=== PATIENT | male | born 1970 | race Hispanic/Latino ===

== ENCOUNTER 2020-12-22 08:00 | Inpatient (IN) | payer BC, OTHER ==
[~2020-12-22] VITALS: Ht 160 cm; Wt 82.6 kg
[2020-12-22 10:11] LABS: BASOPHILS % (AUTO) 0.8 % (0.0-5.0); EOSINOPHILS % (AUTO) 2.1 % (0.0-8.0); HEMATOCRIT 44.4 % (42-54); LYMPHOCYTES % (AUTO) 33.8 % (21.0-51.0); MEAN CORPUSCULAR HEMOGLOBIN 29.9 pg (27.0-33.0); MEAN CORPUSCULAR HGB CONC 33.1 g/dL (32.0-36.0); MEAN CORPUSCULAR VOLUME 90.2 fL (79-99); MONOCYTES % (AUTO) 6.9 % (3.0-13.0); NEUTROPHILS % (AUTO) 56.2 % (40.0-77.0); PLATELET COUNT (AUTO) 227 K/uL (130-400); RED BLOOD CELL COUNT(AUTO) 4.92 MIL/uL (4.50-6.20); RED CELL DISTRIBUTION WIDTH 12.2 % (11.0-15.5); WHITE BLOOD COUNT (AUTO) 5.2 K/uL (4.8-10.8)
[2020-12-22 10:16] LABS: APPEARANCE,URINE Clear (CLEAR); BILIRUBIN,URINE Negative (NEGATIVE); COLOR,URINE Yellow (YELLOW); GLUCOSE, URINE (UA) Negative (NEGATIVE); KETONES,URINE Negative (NEGATIVE); LEUKOCYTE ESTERASE ,URINE Negative (NEGATIVE); NITRATE,URINE Negative (NEGATIVE); OCCULT BLOOD,URINE Negative (NEGATIVE); PROTEIN,URINE Negative (NEGATIVE)
[2020-12-22 10:33] LABS: INR 0.99 (0.85-1.15); PROTHROMBIN TIME 10.8 SEC (9.6-11.6)
[2020-12-22 10:34] LABS: CREATININE 0.9 mg/dL (0.5-1.5); POTASSIUM 4.4 mmol/L (3.5-5.1)
[2020-12-22 12:16] VITALS: BP 135/73
[2020-12-22] MEDS ORDERED: GABA600T10 PO (12:42)
[2020-12-22] MEDS ORDERED: TRAM50TA4 PO (12:42)
[2020-12-22] MEDS ORDERED: NAPR-1023 PO (12:42)
[2020-12-25] VITALS (20 sets, daily range): BP systolic 97–132; BP diastolic 45–81
[2020-12-25] MEDS ORDERED: LACTATED RINGERS 1000ML 1,000 ML IV ONE (10:30)
[2020-12-25] MEDS ORDERED: ACET-2743 PO (11:07)
[2020-12-25] MEDS: CEFAZOLIN SODIUM 1 GM VIAL ONE ×2 (11:08→16:43)
[2020-12-25] MEDS ORDERED: METOCLOPRAMIDE 10 MG/2 ML VIAL ONE (15:07)
[2020-12-25] MEDS ORDERED: ACETAMINOPHEN 500 MG TABLET ONE (15:07)
[2020-12-25] MEDS ORDERED: CELECOXIB 200 MG CAP ONE (15:08)
[2020-12-25] MEDS: TRANEXAMIC ACID 1000MG/10ML ONE ×2 (15:19→16:48)
[2020-12-25] MEDS ORDERED: CEFAZOLIN SODIUM 1 GM VIAL ONE (16:19)
[2020-12-25] MEDS ORDERED: ROCURONIUM 10MG/1ML SYR 10 MG/ML ML ONE ×2 (16:25→17:54)
[2020-12-25] MEDS ORDERED: PROPOFOL 10 MG/ML 20ML VIAL IV ONE (16:25)
[2020-12-25] MEDS ORDERED: MIDAZOLAM HCL 1 MG/ML 2ML VIAL ONE (16:25)
[2020-12-25] MEDS ORDERED: LIDOCAINE HCL-MPF 1% 5ML AMP IJ ONE (16:25)
[2020-12-25] MEDS ORDERED: FENTANYL CITRATE PF 50 MCG/1 ML 2ML VIAL ONE ×2 (16:26→17:41)
[2020-12-25] MEDS ORDERED: PHENYLEPHRINE HCL 10 MG/ML 1ML VIAL IV ONE (17:34)
[2020-12-25] MEDS ORDERED: EPHEDRINE SULFATE 50 MG/ML AMPULE ONE (18:31)
[2020-12-25] MEDS ORDERED: TRANEXAMIC ACID 1000MG/10ML ONE (19:51)
[2020-12-25] MEDS ORDERED: POTASSIUM CHLORIDE 10% ELIXIR 20 MEQ/15 ML UDCUP PO PRN (20:00)
[2020-12-25] MEDS ORDERED: TRAMADOL HCL 50 MG TABLET PO PRN (20:00)
[2020-12-25] MEDS ORDERED: CALCIUM CARB 500MG PO PRN (20:00)
[2020-12-25] MEDS ORDERED: OXYCODONE HCL 5 MG TAB PO PRN (20:00)
[2020-12-25] MEDS ORDERED: LIDOCAINE HCL-MPF 1% 2ML VIAL IV PRN (20:00)
[2020-12-25] MEDS ORDERED: ONDANSETRON 4MG INJ IVP PRN (20:00)
[2020-12-25] MEDS ORDERED: DiphenhydrAMINE HCL 50 MG/ML VIAL IVP PRN (20:00)
[2020-12-25] MEDS ORDERED: FERROUS FUMARATE 324 MG TABLET PO PRN (20:00)
[2020-12-25] MEDS ORDERED: POTASSIUM CHLORIDE 20MEQ/100ML 100 ML IV PRN (20:00)
[2020-12-25] MEDS ORDERED: MEPERIDINE-PF 25 MG/ML SYG ONE ×2 (20:40→20:49)
[2020-12-25] MEDS ORDERED: ONDANSETRON 4MG INJ ONE (21:04)
[2020-12-25] MEDS: PREGABALIN 25 MG CAP PO SCH (21:48)
[2020-12-25] MEDS: CELECOXIB 200 MG CAP PO SCH (21:48)
[2020-12-25] MEDS: FAMOTIDINE 20MG TAB PO SCH (21:49)
[2020-12-25] MEDS: ACETAMINOPHEN 500 MG TABLET PO SCH (21:49)
[2020-12-25] MEDS: ASPIRIN 81 MG EC TAB PO SCH (21:49)
[2020-12-25] MEDS: 0.9%NACL 1000ML 1,000 ML IV SCH (21:50)
[2020-12-25] MEDS: TEMAZEPAM 15 MG CAPSULE PO PRN (22:50)
[2020-12-26] VITALS (7 sets, daily range): BP systolic 102–122; BP diastolic 58–72
[2020-12-26] MEDS: OXYCODONE HCL 5 MG TAB PO PRN ×4 (00:33→23:44)
[2020-12-26] MEDS: CEFAZOLIN SODIUM 1 GM VIAL IVP SCH ×2 (00:40→08:04)
[2020-12-26 03:54] LABS: HEMATOCRIT 36.5 % (42-54); MEAN CORPUSCULAR HEMOGLOBIN 29.6 pg (27.0-33.0); MEAN CORPUSCULAR HGB CONC 33.7 g/dL (32.0-36.0); MEAN CORPUSCULAR VOLUME 87.7 fL (79-99); RED BLOOD CELL COUNT(AUTO) 4.16 MIL/uL (4.50-6.20); WHITE BLOOD COUNT (AUTO) 9.7 K/uL (4.8-10.8)
[2020-12-26 03:59] LABS: CREATININE 1.2 mg/dL (0.5-1.5); POTASSIUM 5.1 mmol/L (3.5-5.1)
[2020-12-26] MEDS: ACETAMINOPHEN 500 MG TABLET PO SCH ×3 (05:07→19:35)
[2020-12-26] MEDS: KETOROLAC 15MG/ML VIAL (15MG/ML) IV PRN (05:09)
[2020-12-26] MEDS: 0.9%NACL 1000ML 1,000 ML IV SCH ×2 (05:37→16:00)
[2020-12-26] MEDS: TAMSULOSIN HCL 0.4 MG CAP.ER.24H PO SCH (08:03)
[2020-12-26] MEDS: CELECOXIB 200 MG CAP PO SCH ×2 (08:03→19:34)
[2020-12-26] MEDS: ASPIRIN 81 MG EC TAB PO SCH ×2 (08:03→19:35)
[2020-12-26] MEDS: FAMOTIDINE 20MG TAB PO SCH ×2 (08:03→19:35)
[2020-12-26] MEDS: POLYETHYLENE GLYCOL 3350 17 GM POWD.PACK PO SCH (08:04)
[2020-12-26] MEDS: PREGABALIN 25 MG CAP PO SCH ×2 (08:04→19:35)
[2020-12-26] MEDS: TEMAZEPAM 15 MG CAPSULE PO PRN (19:35)
[2020-12-27 00:16] VITALS: BP 112/74
[2020-12-27 03:41] VITALS: BP 125/75
[2020-12-27 04:36] LABS: HEMATOCRIT 32.6 % (42-54); MEAN CORPUSCULAR HEMOGLOBIN 29.7 pg (27.0-33.0); MEAN CORPUSCULAR HGB CONC 33.1 g/dL (32.0-36.0); MEAN CORPUSCULAR VOLUME 89.6 fL (79-99); RED BLOOD CELL COUNT(AUTO) 3.64 MIL/uL (4.50-6.20); RED CELL DISTRIBUTION WIDTH 12.4 % (11.0-15.5); WHITE BLOOD COUNT (AUTO) 6.6 K/uL (4.8-10.8)
[2020-12-27 04:48] LABS: CREATININE 0.9 mg/dL (0.5-1.5); POTASSIUM 3.6 mmol/L (3.5-5.1)
[2020-12-27] MEDS: KCL 20 MEQ ERTAB PO PRN ×2 (05:38→13:40)
[2020-12-27] MEDS: OXYCODONE HCL 5 MG TAB PO PRN ×4 (05:38→23:42)
[2020-12-27] MEDS: ACETAMINOPHEN 500 MG TABLET PO SCH ×3 (05:38→22:42)
[2020-12-27 07:46] VITALS: BP 123/75
[2020-12-27] MEDS: CELECOXIB 200 MG CAP PO SCH ×2 (09:21→20:40)
[2020-12-27] MEDS: FAMOTIDINE 20MG TAB PO SCH ×2 (09:21→20:40)
[2020-12-27] MEDS: ASPIRIN 81 MG EC TAB PO SCH ×2 (09:21→20:40)
[2020-12-27] MEDS: TAMSULOSIN HCL 0.4 MG CAP.ER.24H PO SCH (09:21)
[2020-12-27] MEDS: PREGABALIN 25 MG CAP PO SCH ×2 (09:22→20:40)
[2020-12-27] MEDS: POLYETHYLENE GLYCOL 3350 17 GM POWD.PACK PO SCH (09:22)
[2020-12-27] MEDS: KETOROLAC 15MG/ML VIAL (15MG/ML) IV PRN (09:24)
[2020-12-27 11:11] VITALS: BP 126/78
[2020-12-27 15:47] VITALS: BP 120/76
[2020-12-27] MEDS ORDERED: HYDR-4060 PO (17:16)
[2020-12-27] MEDS ORDERED: AEC81 PO (17:16)
[2020-12-27 19:00] VITALS: BP 124/68
[2020-12-27] MEDS: TEMAZEPAM 15 MG CAPSULE PO PRN (20:40)
[2020-12-28] VITALS: BP 111/66
[2020-12-28 04:00] VITALS: BP 122/65
[2020-12-28] MEDS: ACETAMINOPHEN 500 MG TABLET PO SCH (05:07)
[2020-12-28 07:51] VITALS: BP 115/66
[2020-12-28] MEDS: ASPIRIN 81 MG EC TAB PO SCH (08:42)
[2020-12-28] MEDS: FAMOTIDINE 20MG TAB PO SCH (08:42)
[2020-12-28] MEDS: PREGABALIN 25 MG CAP PO SCH (08:42)
[2020-12-28] MEDS: POLYETHYLENE GLYCOL 3350 17 GM POWD.PACK PO SCH (08:42)
[2020-12-28] MEDS: TAMSULOSIN HCL 0.4 MG CAP.ER.24H PO SCH (08:42)
[2020-12-28] MEDS: CELECOXIB 200 MG CAP PO SCH (08:42)
[2020-12-28] MEDS: OXYCODONE HCL 5 MG TAB PO PRN (10:16)
[2020-12-28] MEDS ORDERED: BISACODYL 10 MG SUPP.RECT RC PRN (20:00)
== END 2020-12-28 12:06 | disposition home health service (06) | DRG 470 ==
LOC: DAHIP 12-25 09:32 → 4AH 12-25 21:07
PROVIDERS: ADMIT Orthopaedic Surgery; ATTEND Orthopaedic Surgery
PROC: 0SRB03Z Replacement of Left Hip Joint with Ceramic Synthetic Substitute, Open Approach (ICD-10-PCS; principal; 2020-12-25 17:38)
DX: M87.852 Other osteonecrosis, left femur (principal); R26.89 Other abnormalities of gait and mobility; M87.851 Other osteonecrosis, right femur; G89.29 Other chronic pain; Z20.822 Contact with and (suspected) exposure to COVID-19; E78.00 Pure hypercholesterolemia, unspecified; M79.7 Fibromyalgia; D64.9 Anemia, unspecified; Z88.5 Allergy status to narcotic agent
CPT/HCPCS: 36415; 73503; 80048; 81003; 85025; 85027; 85610; 87088; 87635; 87641; 97039; C1776; G0378; J0690; J1885; J2175; J2250; J2370; J2405; J2704; J2765; J3010; J3490; J7030; J7120

== ENCOUNTER 2021-02-01 17:21 | Emergency (ER) | payer BC, OTHER ==
[~2021-02-01] VITALS: Ht 160 cm; Wt 81.2 kg
[~2021-02-01 17:21] MED LIST: ACET-2743 PO; AEC81 PO; GABA600T10 PO; HYDR-4060 PO
[2021-02-01] MEDS ORDERED: HYDROCODONE/ACETAMINOPHEN 10/325 MG TAB PO ONE (17:30)
[2021-02-01] MEDS ORDERED: KETOROLAC 60 MG VIAL (30MG/ML) IM ONE (17:30)
[2021-02-01 18:08] VITALS: BP 116/81
== END 2021-02-01 18:23 | disposition home or self-care (01) ==
LOC: EDH 17:21
DX: S76.011A Strain of muscle, fascia and tendon of right hip, initial encounter (principal); M16.11 Unilateral primary osteoarthritis, right hip; Z96.642 Presence of left artificial hip joint; X58.XXXA Exposure to other specified factors, initial encounter; Y93.89 Activity, other specified; Y92.89 Other specified places as the place of occurrence of the external cause; Y99.8 Other external cause status
CPT/HCPCS: 73502; 96372; 99284; J1885

== ENCOUNTER 2024-09-28 10:52 | Observation (INO) | payer BC, OTHER ==
[2024-09-24 13:19] LABS: IMMATURE GRANULOCYTE ABSOLUTE 0.01 K/uL (0-1); NUCLEATED RED BLOOD CELLS 0.0 % (0.0-0.19); PLATELET COUNT (AUTO) 243 K/uL (130-400); RED BLOOD CELL COUNT(AUTO) 4.87 MIL/uL (4.50-6.20); RED CELL DISTRIBUTION WIDTH 12.6 % (11.0-15.5); WHITE BLOOD COUNT (AUTO) 5.0 K/uL (4.8-10.8)
[2024-09-24 13:23] VITALS: BP 114/72; PULSE 82; RESP 15
[2024-09-24 13:25] LABS: APPEARANCE,URINE CLEAR (CLEAR); GLUCOSE, URINE (UA) NEGATIVE (NEGATIVE); LEUKOCYTE ESTERASE ,URINE NEGATIVE Leu/uL (NEGATIVE); NITRATE,URINE NEGATIVE (NEGATIVE); OCCULT BLOOD,URINE NEGATIVE (NEGATIVE)
[2024-09-24 13:27] LABS: CREATININE 0.8 mg/dL (0.5-1.3); GLOMERULAR FILTR. RATE CALC 105.0 mL/min (>90); GLUCOSE,RANDOM 101.0 mg/dL (70-105); SODIUM SERUM 141.0 mmol/L (136-145); UREA NITROGEN, BLOOD 22.0 mg/dL (7-18)
[2024-09-24 13:27] LABS: ADD UA MICROSCOPIC NO
[2024-09-24 13:31] LABS: INR 1.0 (0.85-1.15)
[~2024-09-28] VITALS: Ht 160 cm; Wt 72.6 kg
[~2024-09-28 10:52] MED LIST changes: -ACET-2743 PO; -AEC81 PO; -GABA600T10 PO; -HYDR-4060 PO; +NAPR-1194 PO
[2024-09-28 11:15] VITALS: BP 134/82; PULSE 69; RESP 18; TEMP 97.3
[2024-09-28] MEDS: LACTATED RINGERS 1000ML 1,000 ML IV ONE (12:37)
[2024-09-28] MEDS ORDERED: HYDR-4060 PO (12:49)
[2024-09-28] MEDS ORDERED: LIDOCAINE PF 100MG/5ML (2%) SYRINGE 5ML ONE (19:54)
[2024-09-28] MEDS ORDERED: GLYCOPYRROLATE 0.2 MG/ML 5 ML VIAL ONE (19:55)
[2024-09-28] MEDS ORDERED: NEOSTIGMINE METHYLSULFATE 1MG/ML IV ONE (19:55)
[2024-09-28] MEDS ORDERED: MIDAZOLAM HCL 1 MG/ML 2ML VIAL ONE (19:55)
[2024-09-28] MEDS ORDERED: TRANEXAMIC ACID 1000MG/10ML ONE (20:37)
[2024-09-28] MEDS ORDERED: VANCOMYCIN 500MG+NS 100ML 100 ML IV ONE (20:37)
[2024-09-28] MEDS: TRANEXAMIC ACID 1000MG/10ML IV ONE (20:41)
[2024-09-28 23:38] VITALS: BP 95/50; PULSE 62; RESP 14; TEMP 97.5
[2024-09-28 23:43] VITALS: BP 111/60; PULSE 61; RESP 14
[2024-09-28 23:48] VITALS: BP 124/63; PULSE 70; RESP 16
[2024-09-28 23:53] VITALS: BP 116/58; PULSE 75; RESP 15
[2024-09-28 23:58] VITALS: BP 118/55; PULSE 70; RESP 15
[2024-09-29] VITALS (21 sets, daily range): BP systolic 101–141; BP diastolic 50–79; PULSE 67–110; RESP 14–20; TEMP 97.8–98.6; O2SAT 98–100
[2024-09-29] MEDS: 0.9%NACL 1000ML 1,000 ML IV SCH
[2024-09-29] MEDS ORDERED: FERROUS FUMARATE 324 MG TABLET PO PRN
--- NOTE | 2024-09-29 00:12 | OP ---
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 [place] femur size 9 standard offset, femoral head size 36 mm standard, acetabular cup G7 size 50 mm, G7 liner 36 mm high wall] PROCEDURE: [Right total hip arthroplasty] ESTIMATED BLOOD LOSS: [500 mL] INDICATIONS: [The patient is a 54-year-old male with a history of chronic pain to the right hip secondary to avascular necrosis which has progressed and now has a significant amount of pain. The patient is brought to the operating room for a right total hip arthroplasty, procedure that he understood as well as the risks involved, benefits and possible complications and has agreed to sign the consent form] DESCRIPTION OF PROCEDURE: [After adequate general anesthesia was achieved and regional block obtained the patient was placed in the left lateral decubitus with the use of the beanbag and hip holders. The left lower extremity was prepped and draped in the usual manner after x-rays taken with the C-arm were used to check the position of the pelvis. After anatomic landmarks were identified we proceeded to make an incision in the skin centered on the greater trochanter and with a slight curve posteriorly followed by dissection of the subcutaneous tissue with the use of the Bovie cautery. After identification of the lateral surface of the greater trochanter we proceeded to apply and bone infusion needle into this area and then a solution of 50 mL of normal saline mixed with 500 mg of vancomycin was injected into the bone removing the needle soon after. The tensor fascia imelda and gluteus whit fascia were then opened longitudinally and the fibers of the gluteus muscle were split manually entering into the deep space applying then the Charnley retractor. The posterior border of the gluteus medius was identified and elevated and a curved Hohmann retract or was inserted underneath to be able to expose the gluteus minimus and short external rotators. The interval between the piriformis and gluteus minimus was open with the use of the Bovie cautery and then the rotators and capsule were detached from their femoral neck insertion and retracted posteriorly entering into the hip joint. We then proceeded to dislocate the hip by flexing and then internally rotating it and after retractors were applied to the base of the femoral neck we proceeded to use the oscillating saw to cut the neck at this level. Hohmann retractors were then applied anteriorly and posteriorly to the acetabulum removing then the labrum and foveal tissue. We proceeded to ream the acetabulum medializing it obtaining adequate cortico-cancellous bone. After irrigation was of the acetabulum was completed we proceeded then to apply the final component and x-rays were taken correcting the orientation of the acetabulum to its final position. We then proceeded to use a box osteotome to enter the canal followed by insertion of the canal finder and then we proceeded to broach from size 4 up to above-mentioned size. At this point we removed the last broach and packed the canal for hemostasis and after the retractors were removed we proceeded then to bring the hip into extension. Then a trial liner was inserted as well as a trial femur and then we proceeded to apply the trial femoral heads reducing the hip and taken x-rays until we identify the adequate size component. Once we were satisfied we proceeded to remove the components from the femur and the trial liner after dislocating the hip and after copious irrigation of the joint was completed we then proceeded to apply the final liner followed by the insertion of the final femoral stem and femoral head. Once the hip was reduced we checked the leg length and offset, which were normal and clinically the patient had normal length, negative shuck test and x-rays reveal adequate leg length compared to the opposite hip. The joint was then copiously irrigated with a diluted Betadine solution followed by irrigation with antibiotic solution with jet lavage once again and we then proceeded to take final x-rays and then to close the wound first with approximation of the capsule with #1 Vicryl simple stitches followed by approximation of the short external rotators with #2 PDS suture passing the sutures through the bone. The Charnley retractor was then removed and the gluteus whit fascia was closed with a #1 Vicryl running stitch and the tensor fascia imelda with #1 Vicryl crossed stitches. The subcutaneous tissue was closed with #2 Monocryl inverted stitches and the skin was closed with 3-0 Monocryl subcuticularly. A suction dressing was then applied to the incision and the drapes were then removed the patient being placed in the supine position. Leg length was checked and noted to be adequate. The patient was then transferred to a hospital bed and taken to recovery room for follow-up by anesthesia. There were no complications during the procedure.] SACHIN OHARA MD Sep 29, 2024 00:12
--- NOTE | 2024-09-29 00:13 | HMCIMG ---
EXAM: RF Right hip, 4 views. CLINICAL HISTORY: Right total hip arthroplasty. COMPARISON: RF left hip dated 12/25/20. FINDINGS: Interval right hip arthroplasty with orthopedic hardware in place. Stable left hip arthroplasty with orthopedic hardware in place. No acute fracture or aggressive appearing osseous lesion. Pubic symphysis is unremarkable. The soft tissues are unremarkable. IMPRESSION: Interval right hip arthroplasty with orthopedic hardware in place. Stable left hip arthroplasty with orthopedic hardware in place. No hardware complications. /[place]
[2024-09-29] MEDS: TRANEXAMIC ACID 1000MG/10ML ONE (00:16)
[2024-09-29 05:57] LABS: NUCLEATED RED BLOOD CELLS 0.0 % (0.0-0.19); PLATELET COUNT (AUTO) 200.0 K/uL (130-400); RED BLOOD CELL COUNT(AUTO) 4.33 MIL/uL (4.50-6.20); RED CELL DISTRIBUTION WIDTH 12.3 % (11.0-15.5); WHITE BLOOD COUNT (AUTO) 9.5 K/uL (4.8-10.8)
[2024-09-29 06:19] LABS: CREATININE 1.3 mg/dL (0.5-1.3); GLOMERULAR FILTR. RATE CALC 65.0 mL/min (>90); GLUCOSE,RANDOM 196.0 mg/dL (70-105); SODIUM SERUM 134.0 mmol/L (136-145); UREA NITROGEN, BLOOD 18.0 mg/dL (7-18)
[2024-09-29] MEDS: ASPIRIN 81 MG EC TAB PO SCH (07:35)
[2024-09-29] MEDS: FAMOTIDINE 20MG TAB PO SCH (07:35)
[2024-09-29] MEDS ORDERED: PoTASSium chloRIDE 20MEQ ER 20 MEQ ERTAB PO PRN (11:00)
[2024-09-29] MEDS ORDERED: PoTASSium chl 10% ELIXIR 20MEQ 20 MEQ/15 ML UDCUP PO PRN (11:00)
[2024-09-29] MEDS: PROMETHAZINE HCL 25 MG/ML 1ML AMPULE IM ONE (11:52)
--- NOTE | 2024-09-29 12:12 | PN ---
Entry patient is seen at 740 this morning. Ortho postop day one. The patient upon entering appears to be nauseated vomiting anything he intakes. He is pending to receive Zofran. Patient states that he does not tolerate many pain medications and noticed that after the Dilaudid he started with the nausea. The nurse is at the bedside and is pending to give him a dose of Zofran and Toradol. The patient states his nausea and vomiting is what is bothering in the most at this time. Vital signs have been stable. He has been afebrile. Operative findings discussed with the patient. Laboratory results reviewed. Voiding yet to pass gas. No therapy was performed yesterday as he was brought up late. Pending therapy this morning. Discharge goal is home health/PT Assessment: Status post right total hip arthroplasty. Acute postoperative blood loss anemia. Hypokalemia Hyperglycemia Nausea/Vomiting Plan: Continue with Dr. Lanier total hip arthroplasty protocol and discharge planning. Postoperative blood loss anemia addressed with the protocol. Hypokalemia addressed with the protocol Hyperglycemia addressed with the protocol We are going to stop the Dilaudid to see if this will improve his nausea. We will consider [id number] mg IM. If no improvement request nursing to have anesthesia give us a hand with a his N/V. Keep NPO but keep IV fluids at at least 100 mL/hour. Vitals/Labs Vital Signs Date Time Temp Pulse Resp B/P (MAP) Pulse Ox O2 Delivery O2 Flow Rate FiO2 09/29/24 11:07 97.9 102 20 125/74 98 Room Air 09/29/24 07:47 0 21 Laboratory Tests 09/29/24 05:37 Medications Current Medications Cefazolin Sodium 2 gm STK-MED ONCE .ROUTE Last administered on 09/28/24at 20:37; Start 09/28/24 at 11:14; Stop 09/28/24 at 11:14; Status DC Lactated Ringer's 1,000 ml @ As Directed STK-MED ONCE IV Last administered on 09/28/24at 12:37; Start 09/28/24 at 11:14; Stop 09/28/24 at 11:14; Status DC Lidocaine HCl 100 mg STK-MED ONCE .ROUTE; Start 09/28/24 at 19:54; Stop 09/28/24 at 19:55; Status DC Ondansetron HCl 4 mg STK-MED ONCE .ROUTE; Start 09/28/24 at 19:54; Stop 09/28/24 at 19:55; Status DC Dexamethasone Sodium Phosphate 10 mg STK-MED ONCE .ROUTE; Start 09/28/24 at 19:54; Stop 09/28/24 at 19:55; Status DC Glycopyrrolate 1 mg STK-MED ONCE .ROUTE; Start 09/28/24 at 19:55; Stop 09/28/24 at 19:55; Status DC Propofol 200 mg STK-MED ONCE IV; Start 09/28/24 at 19:55; Stop 09/28/24 at 19:55; Status DC Neostigmine Methylsulfate 10 mg STK-MED ONCE IV; Start 09/28/24 at 19:55; Stop 09/28/24 at 19:55; Status DC Midazolam HCl 2 mg STK-MED ONCE .ROUTE; Start 09/28/24 at 19:55; Stop 09/28/24 at 19:56; Status DC Rocuronium [place] 50 mg STK-MED ONCE .ROUTE; Start 09/28/24 at 19:55; Stop 09/28/24 at 19:56; Status DC Fentanyl Citrate 100 mcg STK-MED ONCE .ROUTE; Start 09/28/24 at 19:55; Stop 09/28/24 at 19:56; Status DC Ropivacaine 150 mg STK-MED ONCE .ROUTE; Start 09/28/24 at 20:04; Stop 09/28/24 at 20:05; Status DC Tranexamic Acid 1,000 mg STK-MED ONCE .ROUTE; Start 09/28/24 at 20:37; Stop 09/28/24 at 20:37; Status DC Vancomycin HCl 100 ml @ As Directed STK-MED ONCE IV; Start 09/28/24 at 20:37; Stop 09/28/24 at 20:37; Status DC Cefazolin Sodium 1 gm STK-MED ONCE .ROUTE; Start 09/28/24 at 20:52; Stop 09/28/24 at 20:53; Status DC Ephedrine Sulfate 50 mg STK-MED ONCE .ROUTE; Start 09/28/24 at 21:09; Stop 09/28/24 at 21:09; Status DC Tranexamic Acid 1,000 mg STK-MED ONCE IV Last administered on 09/28/24at 20:41; Start 09/28/24 at 20:41; Stop 09/28/24 at 21:19; Status DC Cefazolin Sodium 3 gm STK-MED ONCE IVPB Last administered on 09/28/24at 20:54; Start 09/28/24 at 20:54; Stop 09/28/24 at 21:19; Status DC Vancomycin HCl 500 mg STK-MED ONCE IJ Last administered on 09/28/24at 20:59; Start 09/28/24 at 20:59; Stop 09/28/24 at 21:19; Status DC Ketamine HCl 50 mg STK-MED ONCE .ROUTE; Start 09/28/24 at 21:41; Stop 09/28/24 at 21:42; Status DC Ketorolac Tromethamine 30 mg STK-MED ONCE .ROUTE; Start 09/28/24 at 23:22; Stop 09/28/24 at 23:27; Status DC Fentanyl Citrate 100 mcg STK-MED ONCE .ROUTE; Start 09/28/24 at 23:29; Stop 09/28/24 at 23:29; Status DC Fentanyl Citrate 100 mcg STK-MED ONCE .ROUTE; Start 09/28/24 at 23:40; Stop 09/28/24 at 23:41; Status DC Sodium Chloride 1,000 ml @ 100 mls/hr Q10H IV Last administered on 09/29/24at 11:52; Start 09/29/24 at 00:00; Stop 09/29/24 at 23:59 Polyethylene Glycol 17 gm DAILY PO Last administered on 09/29/24at 07:35; Start 09/29/24 at 09:00; Stop 10/29/24 at 08:59 Bisacodyl 10 mg DAILY PRN RC; Start 10/02/24 at 00:00; Stop 11/01/24 at 00:00 Famotidine 20 mg BID PO Last administered on 09/29/24at 07:35; Start 09/29/24 at 09:00; Stop 10/29/24 at 08:59 Tamsulosin HCl 0.4 mg DAILY PO Last administered on 09/29/24at 07:35; Start 09/29/24 at 09:00; Stop 10/29/24 at 08:59 Ferrous Fumarate 324 mg DAILY PRN PO; Start 09/29/24 at 00:00; Stop 10/29/24 at 00:00 Temazepam 15 mg HS PRN PO; Start 09/29/24 at 00:00; Stop 10/29/24 at 00:00 Diphenhydramine HCl 25 mg Q6H PRN IVP; Start 09/29/24 at 00:00; Stop 10/29/24 at 00:00 Ondansetron HCl 4 mg Q6H PRN IVP Last administered on 09/29/24at 07:56; Start 09/29/24 at 00:00; Stop 10/29/24 at 00:00 Cefazolin Sodium 2 gm Q8H IVP Last administered on 09/29/24at 07:35; Start 09/29/24 at 00:30; Stop 09/29/24 at 08:31; Status DC Oxycodone HCl 5 mg Q6H PRN PO; Start 09/29/24 at 00:00; Stop 10/06/24 at 00:00 Oxycodone HCl 10 mg Q6H PRN PO; Start 09/29/24 at 00:00; Stop 10/06/24 at 00:00 Ketorolac Tromethamine 30 mg Q6H PRN IVP Last administered on 09/29/24at 07:57; Start 09/29/24 at 00:00; Stop 10/04/24 at 00:00 Hydromorphone HCl 1 mg Q4H PRN IVP Last administered on 09/29/24at 05:54; Start 09/29/24 at 00:00; Stop 09/29/24 at 11:42; Status DC Aspirin 81 mg BID PO Last administered on 09/29/24at 07:35; Start 09/29/24 at 09:00; Stop 10/29/24 at 08:59 Tranexamic Acid 1,000 mg STK-MED ONCE .ROUTE Last administered on 09/29/24at 00:16; Start 09/29/24 at 00:04; Stop 09/29/24 at 00:15; Status DC Ondansetron HCl 4 mg STK-MED ONCE .ROUTE Last administered on 09/29/24at 00:26; Start 09/29/24 at 00:23; Stop 09/29/24 at 00:23; Status DC Potassium Chloride 100 ml @ 100 mls/hr AD PRN IV; Start 09/29/24 at 11:00; Stop 10/29/24 at 10:59 Potassium Chloride 20 meq AD PRN PO; Start 09/29/24 at 11:00; Stop 10/29/24 at 10:59 Potassium Chloride 20 meq AD PRN PO; Start 09/29/24 at 11:00; Stop 10/29/24 at 10:59 Promethazine HCl 25 mg ONCE ONCE IM Last administered on 09/29/24at 11:52; Start 09/29/24 at 12:00; Stop 09/29/24 at 12:01; Status DC PAOLO SIDHU NP Sep 29, 2024 12:12
--- NOTE | 2024-09-29 12:30 | NUR ---
Ortho Coordinator: Teaching regarding DVT and pneumonia prevention, pain expectations and pain management. Patient up to chair, at bedside. B SCD sleeves in room, machine in room. Incentive spirometer at bedside. Patient return demonstrated proper use of incentive spirometer and verbalized frequency of use. Patient return demonstrated proper foot flexion and extension, rationale provided. Patient intends to discharge home with home health. Overview of home health provided. Set expectation for patient to shower today, rationale provided. Pain management strategy reviewed. Pain scale reviewed. Patient reports not being able to keep food or drink down. Currently being addressed. Patient consumed jello, while I was present at bedside, able to keep down. Reinforce need for patient to hydrate and ambulate with physical therapy. Patient and verbalized understanding to all instructions. No additional questions or concerns at this time.
--- NOTE | 2024-09-29 13:14 | NUR ---
[facility] CM MET WITH PT THIS MORNING, INITIAL ASSESSMENT DONE. PATIENT IS INDEPENDENT PRIOR TO SURGERY, LIVES AT HOME WITH HIS SAMANTHA WRIGHT. DENIES ANY EQUIPMENT/SERVICES. FEELS SAFE TO GO BACK HOME, STILL WORK AND DRIVE, SPOUSE ABLE TO ASSIST WITH TRANSPORTATION AND NEEDS NECESSARY. DISCUSSED MD RECOMMENDATIONS FOR HOME W/HH AND DME WKR, PT AGREEABLE, PT ALSO REQUESTING 3IN1 CHAIR IF POSSIBLE, PT MADE AWARE THIS CM CANNOT GUARANTEE IF INSURANCE WILL PAY FOR 3IN1 CHAIR, BUT WILL ALSO SEND REQUEST, PT SIGNED CONSENT [facility] FOR [facility] NETWORK HH AND [facility] DME/ANY IN NETWORK DME. [facility] HOME W/HH AND DME ONCE APPROVED. CM TO CONTINUE TO FOLLOW UP. Addendum: 09/29/24 at 1318 by ISELA ECHEVARRIA LVN CM Amended: Links added.
--- NOTE | 2024-09-29 17:00 | NUR ---
CHANGE IN CONDITION ROUNDED ON PATIENT TO SEE HIM EATING MASHED POTATOES/ [employer] CHICKEN. INFORMED HIM THAT HE WAS STILL ON NPO STATUS. HE STATED THAT HE WAS NOT FEELING NAUSEOUS ANYMORE AND THAT HE WOULD LIKE TO TRY TO SEE HOW HE TOLERATED THE FOOD. I WILL CONTINUE TO MONITOR FOR SYMPTOMS OF NAUSEA.
[2024-09-30 03:34] VITALS: BP 96/48; PULSE 100; RESP 20; TEMP 98.7
[2024-09-30 07:39] VITALS: BP 100/57; PULSE 109; RESP 17; TEMP 98.4
--- NOTE | 2024-09-30 08:37 | HMCIMG ---
EXAM: CR Pelvis, 2 views. CLINICAL HISTORY: Right hip joint replacement. COMPARISON: Radiograph of the right hip dated 09/28/2024. Radiograph of the left hip dated 12/25/2020. FINDINGS: No acute fracture or aggressive appearing osseous lesion. Total hip joint replacement prostheses are present bilaterally, with no evidence of hardware failure. Mild osteopenia. Soft tissue emphysema around the right hip, likely secondary to recent hip joint replacement surgery. IMPRESSION: No acute bony abnormality is evident. Total hip joint replacement prostheses are present bilaterally, with no evidence of hardware failure. Soft tissue emphysema around the right hip, likely secondary to recent hip joint replacement surgery. No adverse changes compared to the previous radiographs. /[place]
[2024-09-30 09:20] VITALS: O2SAT 98
--- NOTE | 2024-09-30 10:30 | NUR ---
Ortho Coordinator: Reinforced teaching. Patient in bed, spouse at bedside. Dressing clean, dry and intact. JESSIE pump functioning, light flashing green. Patient reports showering. Just completed physical therapy, ambulated 200 ft. Reinforce next steps with home health physical therapy. Patient pending DME delivery. Encouraged patient to continue pre-medicating prior to physical therapy and periods of high activity once discharged, continue with incentive spirometry until he reaches presurgery activity level, continue foot flexion and extension exercises. Patient and spouse report Dr. Lanier visited this morning, they are pending B LE x-ray results. Will notify physician. Will provide work excuse for spouse. No additional questions or concerns.
[2024-09-30 11:07] VITALS: BP 107/58; PULSE 91; RESP 16; TEMP 97.8
[2024-09-30 15:07] VITALS: BP 121/73; PULSE 96; RESP 18; TEMP 98.1
[2024-09-30] MEDS ORDERED: AEC81 PO (17:38)
[2024-09-30] MEDS ORDERED: OXYC-38 PO (17:38)
--- NOTE | 2024-09-30 17:49 | PN ---
Postop day 2., status post right total hip arthroplasty Vital signs stable, afebrile. No labs pending today. I visited with the patient yesterday evening and he was very concerned because he thinks that he has a very significant leg length discrepancy and when he has shown me he had a proximally 2 in or more deficit. The patient is not having any pain. He is having some difficulty walking as expected. Examination at that time in the room was with the heat was seated and then stood up for a little bit. The incision was dry and clean. The distal neurovascular exam was normal. At that point I decided to take new films AP pelvis to see the length of the extremities compared to the other. The patient has a studies apparently done last night or this morning. He continues with the same complaints but he is doing better in physical therapy. Again the dressing is clean and dry with no signs of infection. Of the distal neurovascular exam is still normal. I have reviewed the AP pelvis that were done this were two. It is very noticeable that the patient has a very significantly pelvic tilt with the left side much higher than the right side but with the reference points of the lesser trochanters and the ischial bone are trace they show that the hips are pretty symmetric. I compared these films to the ones obtained in the OR where he was asleep and the pelvis was straight and also show a very even length in both lower extremities. I examined the patient's standing and he definitely has left pelvic elevation and in the supine position with the patient clinically straight the right leg looks longer but the palpation of the pelvis shows that he still has a left pelvic elevation. Were night being the legs to the same orientation of the pelvis the leg length is very decent with a very small length discrepancy of approximately 1 cm of the right side. I have brought a copious of the sacrum with the patient and I explained to him the situation. He has been aware of having any condition of the back except for pain and has been getting pain management but he is unaware if he has a scoliosis or any other abnormality of the pelvis. Assessment: Status post right total hip arthroplasty. Plan: The patient has been accepted for home health and he will be dismissed today. The patient is going to come and see me in a couple of weeks and then we determine what can we do to help him. At that time we will obtain new x-rays and we will also do x-rays with the legs in the orientation of the pelvis. The patient understands the plan and agrees. Vitals/Labs Vital Signs Date Time Temp Pulse Resp B/P (MAP) Pulse Ox O2 Delivery O2 Flow Rate FiO2 09/30/24 15:07 98.1 96 18 121/73 98 Room Air 09/30/24 09:20 0 21 Medications Current Medications Cefazolin Sodium 2 gm STK-MED ONCE .ROUTE Last administered on 09/28/24at 20:37; Start 09/28/24 at 11:14; Stop 09/28/24 at 11:14; Status DC Lactated Ringer's 1,000 ml @ As Directed STK-MED ONCE IV Last administered on 09/28/24at 12:37; Start 09/28/24 at 11:14; Stop 09/28/24 at 11:14; Status DC Lidocaine HCl 100 mg STK-MED ONCE .ROUTE; Start 09/28/24 at 19:54; Stop 09/28/24 at 19:55; Status DC Ondansetron HCl 4 mg STK-MED ONCE .ROUTE; Start 09/28/24 at 19:54; Stop 09/28/24 at 19:55; Status DC Dexamethasone Sodium Phosphate 10 mg STK-MED ONCE .ROUTE; Start 09/28/24 at 19:54; Stop 09/28/24 at 19:55; Status DC Glycopyrrolate 1 mg STK-MED ONCE .ROUTE; Start 09/28/24 at 19:55; Stop 09/28/24 at 19:55; Status DC Propofol 200 mg STK-MED ONCE IV; Start 09/28/24 at 19:55; Stop 09/28/24 at 19:55; Status DC Neostigmine Methylsulfate 10 mg STK-MED ONCE IV; Start 09/28/24 at 19:55; Stop 09/28/24 at 19:55; Status DC Midazolam HCl 2 mg STK-MED ONCE .ROUTE; Start 09/28/24 at 19:55; Stop 09/28/24 at 19:56; Status DC Rocuronium [place] 50 mg STK-MED ONCE .ROUTE; Start 09/28/24 at 19:55; Stop 09/28/24 at 19:56; Status DC Fentanyl Citrate 100 mcg STK-MED ONCE .ROUTE; Start 09/28/24 at 19:55; Stop 09/28/24 at 19:56; Status DC Ropivacaine 150 mg STK-MED ONCE .ROUTE; Start 09/28/24 at 20:04; Stop 09/28/24 at 20:05; Status DC Tranexamic Acid 1,000 mg STK-MED ONCE .ROUTE; Start 09/28/24 at 20:37; Stop 09/28/24 at 20:37; Status DC Vancomycin HCl 100 ml @ As Directed STK-MED ONCE IV; Start 09/28/24 at 20:37; Stop 09/28/24 at 20:37; Status DC Cefazolin Sodium 1 gm STK-MED ONCE .ROUTE; Start 09/28/24 at 20:52; Stop 09/28/24 at 20:53; Status DC Ephedrine Sulfate 50 mg STK-MED ONCE .ROUTE; Start 09/28/24 at 21:09; Stop 09/28/24 at 21:09; Status DC Tranexamic Acid 1,000 mg STK-MED ONCE IV Last administered on 09/28/24at 20:41; Start 09/28/24 at 20:41; Stop 09/28/24 at 21:19; Status DC Cefazolin Sodium 3 gm STK-MED ONCE IVPB Last administered on 09/28/24at 20:54; Start 09/28/24 at 20:54; Stop 09/28/24 at 21:19; Status DC Vancomycin HCl 500 mg STK-MED ONCE IJ Last administered on 09/28/24at 20:59; Start 09/28/24 at 20:59; Stop 09/28/24 at 21:19; Status DC Ketamine HCl 50 mg STK-MED ONCE .ROUTE; Start 09/28/24 at 21:41; Stop 09/28/24 at 21:42; Status DC Ketorolac Tromethamine 30 mg STK-MED ONCE .ROUTE; Start 09/28/24 at 23:22; Stop 09/28/24 at 23:27; Status DC Fentanyl Citrate 100 mcg STK-MED ONCE .ROUTE; Start 09/28/24 at 23:29; Stop 09/28/24 at 23:29; Status DC Fentanyl Citrate 100 mcg STK-MED ONCE .ROUTE; Start 09/28/24 at 23:40; Stop 09/28/24 at 23:41; Status DC Sodium Chloride 1,000 ml @ 100 mls/hr Q10H IV Last administered on 09/29/24at 11:52; Start 09/29/24 at 00:00; Stop 09/29/24 at 23:59; Status DC Polyethylene Glycol 17 gm DAILY PO Last administered on 09/30/24at 09:05; Start 09/29/24 at 09:00; Stop 10/29/24 at 08:59 Bisacodyl 10 mg DAILY PRN RC; Start 10/02/24 at 00:00; Stop 11/01/24 at 00:00 Famotidine 20 mg BID PO Last administered on 09/30/24at 09:05; Start 09/29/24 at 09:00; Stop 10/29/24 at 08:59 Tamsulosin HCl 0.4 mg DAILY PO Last administered on 09/30/24at 09:05; Start 09/29/24 at 09:00; Stop 10/29/24 at 08:59 Ferrous Fumarate 324 mg DAILY PRN PO; Start 09/29/24 at 00:00; Stop 10/29/24 at 00:00 Temazepam 15 mg HS PRN PO; Start 09/29/24 at 00:00; Stop 10/29/24 at 00:00 Diphenhydramine HCl 25 mg Q6H PRN IVP; Start 09/29/24 at 00:00; Stop 10/29/24 at 00:00 Ondansetron HCl 4 mg Q6H PRN IVP Last administered on 09/30/24at 14:48; Start 09/29/24 at 00:00; Stop 10/29/24 at 00:00 Cefazolin Sodium 2 gm Q8H IVP Last administered on 09/29/24at 07:35; Start 09/29/24 at 00:30; Stop 09/29/24 at 08:31; Status DC Oxycodone HCl 5 mg Q6H PRN PO Last administered on 09/30/24at 09:22; Start 09/29/24 at 00:00; Stop 10/06/24 at 00:00 Oxycodone HCl 10 mg Q6H PRN PO Last administered on 09/30/24at 14:48; Start 09/29/24 at 00:00; Stop 10/06/24 at 00:00 Ketorolac Tromethamine 30 mg Q6H PRN IVP Last administered on 09/29/24at 07:57; Start 09/29/24 at 00:00; Stop 10/04/24 at 00:00 Hydromorphone HCl 1 mg Q4H PRN IVP Last administered on 09/29/24at 05:54; Start 09/29/24 at 00:00; Stop 09/29/24 at 11:42; Status DC Aspirin 81 mg BID PO Last administered on 09/30/24at 09:05; Start 09/29/24 at 09:00; Stop 10/29/24 at 08:59 Tranexamic Acid 1,000 mg STK-MED ONCE .ROUTE Last administered on 09/29/24at 00:16; Start 09/29/24 at 00:04; Stop 09/29/24 at 00:15; Status DC Ondansetron HCl 4 mg STK-MED ONCE .ROUTE Last administered on 09/29/24at 00:26; Start 09/29/24 at 00:23; Stop 09/29/24 at 00:23; Status DC Potassium Chloride 100 ml @ 100 mls/hr AD PRN IV; Start 09/29/24 at 11:00; Stop 10/29/24 at 10:59 Potassium Chloride 20 meq AD PRN PO; Start 09/29/24 at 11:00; Stop 10/29/24 at 10:59 Potassium Chloride 20 meq AD PRN PO; Start 09/29/24 at 11:00; Stop 10/29/24 at 10:59 Promethazine HCl 25 mg ONCE ONCE IM Last administered on 09/29/24at 11:52; Start 09/29/24 at 12:00; Stop 09/29/24 at 12:01; Status DC SACHIN OHARA MD Sep 30, 2024 17:49
--- NOTE | 2024-09-30 17:52 | DS ---
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 Surgical procedures: Right total hip arthroplasty on Summary of History and Physical: The patient is a 54 year-old male with history of severe arthrosis to the right hip secondary to progressive avascular necrosis that has been present for several years and has been treated conservatively with no longer adequate response to treatment. The patient is being admitted for total hip arthroplasty. Previous medical history: Previous surgical history: Family history: Social history: Negative for use of tobacco or alcohol. Allergies: NKDA. Review of system: Negative on admission Hospital course: The patient was admitted and taken to the operating room for a total hip arthroplasty, procedure that went uneventful. Postoperatively the patient remained hemodynamically stable and afebrile. The patient received antibiotic and anticoagulation prophylaxis as per protocol. The patient was evaluated by physical therapy and started rehabilitation treatment with ambulation with the use of walker, weightbearing as tolerated, hip precautions, range of motion exercises and bed transfers. The patient was also evaluated by case management and arrangements were made for discharge . The patient tolerated diet well. On postop day #2 all the arrangements were completed. The dressing was changed and the wound was noted to be stable and the patient was dismissed . Condition on discharge: Good Disposition: The patient will be dismissed . Follow-up will be done at the office in 3 weeks. The patient is to continue with physical therapy and rehabilitation at and be ambulatory with the use of a walker, weightbearing as tolerated and continue with hip precautions. Continue taking pain medication as instructed as well as anticoagulation prophylaxis. Continue with home medications also as instructed and continue with pre admission diet.] SACHIN OHARA MD ] SACHIN OHARA MD Sep 30, 2024 17:52
--- NOTE | 2024-09-30 18:10 | NUR ---
DISCHARGE DISCHARGE ORDERS FOR PATIENT TO BE DISCHARGED HOME WITH HOME HEALTH OBTAINED. DISCHARGE INSTRUCTIONS AND DOCUMENTATION GIVEN TO PATIENT AT BEDSIDE. VOICED UNDERSTANDING. IV DISCONTINUED, CATHETER INTACT, NO S/S OF INFECTION NOTED. PATIENT TOLERATED WELL. BANDS REMOVED PRIOR TO DISCHARGE. PENDING TRANSPORTATION FROM .
--- NOTE | 2024-09-30 18:22 | NUR ---
DISCHARGE PATIENT LEFT VIA WHEELCHAIR ACCOMPANIED BY . NO S/S OF DISTRESS NOTED UPON DEPARTURE.
--- NOTE | 2024-09-30 18:57 | NUR ---
DISCHARGE REPORT CALLED TO [facility], SPOKE WITH PRIYA NEVES. PROVIDED PATIENT'S PAST AND PRESENT HEALTH HISTORY AND MD'S ORDERS. VOICED UNDERSTANDING. NO QUESTIONS ASKED AT THIS TIME. WILL REACH OUT TO PATIENT FOR INITIAL VISIT.
== END 2024-09-30 18:30 | disposition home or self-care (01) ==
LOC: DAH 10:52 → DAHIP 10:53 → DAH 10:53 → 4AH 09-29 00:35
PROVIDERS: ADMIT Orthopaedic Surgery; ATTEND Orthopaedic Surgery
DX: M16.11 Unilateral primary osteoarthritis, right hip (principal); M87.051 Idiopathic aseptic necrosis of right femur; G89.18 Other acute postprocedural pain; D62 Acute posthemorrhagic anemia; E78.00 Pure hypercholesterolemia, unspecified; M79.7 Fibromyalgia; Z79.899 Other long term (current) drug therapy; Z88.5 Allergy status to narcotic agent; Z88.6 Allergy status to analgesic agent
CPT/HCPCS: 80048 ×2; 85025; 85610; 85730; 87086; 81003; 36415 ×2; 87641; 64447; 88311; 88304; 73503; 27130; 96376 ×2; 96372; 96365; 96366; 96375; 85027; 82948; 72170; 97161; 97116 ×4; 97530 ×3; A4663; J0690 ×5; J7120; J3010 ×3; J3490 ×7; J1100; J2003; J2250; J2704; J2405 ×6; J1885 ×3; J2710; J2795; J3373 ×2; A4649 ×3; A9272; A4930 ×3; A4215; A4223 ×2; A4213; A4222; A4221; A4216; G0378 ×42; J1171 ×2; J2550; C1776